=== PATIENT | female | born 1990 | race Caucasian/White ===

== ENCOUNTER → 2024-12-17 | Outpatient (CLI) | payer SELFPAY ==
--- NOTE | 2024-12-17 11:05 | RAD_ITS ---
EXAM: Right foot CLINICAL HISTORY: Atraumatic pain. COMPARISON: None TECHNIQUE: Three views of the right foot were obtained. FINDINGS: Small plantar spur. Mild degree of degenerative changes of the 1st metatarsophalangeal joint. No fracture is seen. Soft tissue swelling. RAD/Foot min 3 Views IMPRESSION: Mild degree of degenerative changes of the 1st metatarsophalangeal joint. Soft tissue swelling. Reading [facility]
--- NOTE | 2024-12-17 11:05 | RAD_ITS ---
PROCEDURE: ANKLE MIN 3 VIEWS 12/17/2024 REASON FOR EXAM: PAIN No history of trauma. TECHNIQUE: 3 views of the right ankle COMPARISON: None FINDINGS: Bones: Small plantar calcaneal spur. Joints: Normal alignment. Mortise appears intact. No effusion. Soft tissues: Soft tissue swelling. Other: RAD/Ankle min 3 Views IMPRESSION: Calcaneal spur. No fracture seen. Reading Location: [facility]
== END | disposition home or self-care (01) ==
LOC: MTRAD 11:05
PROVIDERS: Referring Provider Physician Assistant; Visit Provider Physician Assistant
DX: R52 Pain, unspecified (principal)
CPT/HCPCS: 73610; 73630